=== PATIENT | female | born 1940 | race Caucasian/White ===

== ENCOUNTER 2016-07-21 20:31 | Emergency (ER) | payer OTHER ==
[2016-07-21 23:22] LABS: BASOPHILS 0.2 %; BASOPHILS ABSOLUTE 0.03 10/3/uL (0.0-0.16); EOSINOPHILS 0.7 %; EOSINOPHILS ABSOLUTE 0.09 10/3/uL (0.0-0.53); ER CBC TAT 0 Hrs 05 Mins; HEMATOCRIT 35.3 % (36.0-48.0); HEMOGLOBIN 11.7 g/dL (12.0-16.0); IMMATURE GRANULOCYTES 0.3 %; IMMATURE GRANULOCYTES ABSOLUTE 0.04 10/3/uL (0.0-0.11); LYMPHOCYTES 22.2 %; LYMPHOCYTES ABSOLUTE 2.76 10/3/uL (0.67-4.30); MANUAL DIFF NO %; MEAN CORPUS HGB CONC 33.1 g/dL (32.0-36.0); MEAN CORPUSCULAR HEMOGLOB 31.8 pg (26.0-34.0); MEAN CORPUSCULAR VOLUME 95.9 fL (80-100); MEAN PLATELET VOLUME 10.5 fL (9.2-13.0); MONOCYTES 7.1 %; MONOCYTES ABSOLUTE 0.88 10/3/uL (0.21-1.20); NEUTROPHILS 69.5 %; NEUTROPHILS ABSOLUTE 8.63 10/3/uL (2.02-8.40); PLATELET COUNT 204 10/3/uL (150-400); RBC DISTRIBUTION WIDTH 12.6 % (12.0-16.0); RED CELL COUNT 3.68 10/6/uL (4.0-5.6); WHITE BLOOD CELLS 12.4 10/3/uL (4.5-10.5)
[2016-07-21 23:30] LABS: INTERNATIONAL NORMAL RATI 1.1 UNITS (-); PARTIAL THROMBO TIME 28.2 SEC (22.5-37.2)
[2016-07-21 23:35] LABS: BUN (BLOOD UREA NITROGEN) 13 MG/DL (6-23); CALCIUM, SERUM 8.3 MG/DL (8.5-10.4); CHLORIDE, SERUM 99 MMOL/L (96-112); CO2 (CARBON DIOXIDE) 24 MMOL/L (24-34); CREATININE 0.94 MG/DL (0.55-1.02); GFR AFRICAN AMERICAN 68 ML/MIN (>=60); GFR NON AFRICAN AMERICAN 59 ML/MIN (>=60); GLUCOSE, SERUM 123 MG/DL (60-99)
[2016-07-21 23:36] LABS: POTASSIUM, SERUM 4.7 MMOL/L (3.5-5.3); SODIUM, SERUM 134 MMOL/L (135-148)
[2016-07-25] MEDS ORDERED: LISINOPRIL40 MG PO (08:33)
[2016-07-25] MEDS ORDERED: ASAB PO (08:34)
[2016-07-25] MEDS ORDERED: LOP25 PO (08:36)
[2016-07-25] MEDS ORDERED: OSPHENA60 MG PO (08:36)
[2016-07-25] MEDS ORDERED: LIPITOR20 PO (08:37)
[2016-07-25] MEDS ORDERED: FLOVENT DISK250 MCG INH (08:38)
[2016-07-25] MEDS ORDERED: MUCINEX600 MG PO (08:38)
[2016-07-25] MEDS ORDERED: VENTOLIN HFA INH (08:41)
[2016-07-25] MEDS ORDERED: DSS PO (08:41)
[2016-07-25] MEDS ORDERED: NORCO1 TA1 PO (08:41)
[2016-07-25] MEDS ORDERED: FLORASTOR250 MG PO (08:42)
== END 2016-07-22 01:27 | disposition home or self-care (01) ==
LOC: ER 20:31
PROVIDERS: Hospitalist
PROC: 2W39X1Z Immobilization of Left Upper Extremity using Splint (ICD-10-PCS; principal; 2016-07-21)
DX: S52.025A Nondisplaced fracture of olecranon process without intraarticular extension of left ulna, initial encounter for closed fracture (principal); S00.83XA Contusion of other part of head, initial encounter; J44.9 Chronic obstructive pulmonary disease, unspecified; I10 Essential (primary) hypertension; Z88.2 Allergy status to sulfonamides; Z88.5 Allergy status to narcotic agent; Z88.1 Allergy status to other antibiotic agents; W19.XXXA Unspecified fall, initial encounter
CPT/HCPCS: 70450; 80048; 85025; 85610; 85730; 96374; 99284; J2405

== ENCOUNTER 2016-07-26 10:35 | Observation (INO) | payer OTHER ==
--- NOTE | ~2016-07-26 | OP ---
Record Of Operation [facility] [address] [place]. [address] NAME: JANIE SMITH : 40 STATUS : ADM Mansoor PAT#: [id number] AGE: 76 ADM/REG DATE : 07/26/16 MR#: [id number] REPORT SERV DATE: 07/26/16 DICTATED BY: DESTINY COTO DATE: 07/26/16 REPORT STATUS : Draft TRANSCRIBED BY: MODL DATE: 07/26/16 DATE OF PROCEDURE: 07/26/2016 PREOPERATIVE DIAGNOSIS: Left elbow proximal olecranon intra-articular fracture involving approximately 60% of the articular surface - displaced from fall, 07/21/2016. POSTOPERATIVE DIAGNOSIS: Left elbow proximal olecranon intra-articular fracture involving approximately 60% of the articular surface - displaced from fall, 07/21/2016. PROCEDURE: Open reduction and internal fixation of left olecranon fracture using Acumed standard plate and screws. PHYSICIAN: Destiny Coto M.D. CREAM CHEESE MAKER: Elton Yang. ANESTHESIA: Regional block plus MAC. ESTIMATED BLOOD LOSS: 20 mL. IV FLUIDS: 800 crystalloids. COMPLICATIONS: None. DISPOSITION: The patient tolerated the procedure well and was brought to recovery room in stable condition. PROCEDURE NOTE: After regional block and pain pump catheter was administered by the Anesthesia Department in the preop holding area, the patient was brought to the operating room and placed in the supine position. After general anesthesia was administered, a pneumatic tourniquet was placed around the left proximal arm and the left upper extremity distal to the tourniquet was prepped and draped in usual sterile manner. A surgical timeout was performed and all were in agreement. An Esmarch was then used to exsanguinate the extremity and tourniquet was inflated. A 10 blade scalpel was used to make a longitudinal incision starting some 10 cm distal to the olecranon tip. The incision was made on the dorsal proximal forearm overlying the most superficial portion of the ulna and then directed proximally toward the proximal olecranon. The incision went over the fracture site and continued dorsally onto the distal arm. Dissection was brought down and this is where most of the blood was lost due to the underlying fracture hematoma. The fracture site was identified and immediately dissection was carried out laterally and medially with the latter dissection taking care to protect the ulnar nerve. The ulnar nerve was palpated deep to the cubital tunnel retinaculum and just proximal to this area the ulnar nerve was freed from the overlying the triceps tendon. Distally, a portion of the cubital tunnel retinaculum was divided and after identifying the nerve a vessel loop was used to gently wrapped around the nerve and used to guide further Record Of Operation [facility] [id number] [place]. [address] NAME: JANIE SMITH : 40 STATUS : ADM Mansoor PAT#: [id number] AGE: 76 ADM/REG DATE : 07/26/16 MR#: [id number] REPORT SERV DATE: 07/26/16 DICTATED BY: DESTINY COTO DATE: 07/26/16 REPORT STATUS : Draft TRANSCRIBED BY: MENG DATE: 07/26/16 dissection, a landmark showing where the nerve was as well as to move it out of arm's way with dissection in the area. Dissection was carried out directly at the fracture site in a curette and rongeur were used to remove the blood clots and wound was irrigated. The joint was inspected and no other abnormalities were appreciated. The fracture was reduced and the plate from the Acumed System was placed by first pre-drilling the appropriate length locking proximal screws and then more distally the larger nonlocking screw with one of the screws being locking. Placement of the screw was done after first pre-drilling with the appropriate drill bit, measuring and placing the appropriate length screw. Excellent fixation was noted in the elbow was put through range of motion and good stability was obtained. The elbow was checked under fluoroscopy and all hardware and fracture sites appeared in excellent position. The wound was irrigated and some of the periosteum on the proximal olecranon (more at the distal aspect of the incision) was able to be closed overlying the plate. The skin was then closed with deep and running Monocryl suture and Steri-Strips, sterile dressing, and a posterior splint was applied. Tourniquet was released. The patient was taken out of general anesthesia and brought to recovery room in stable condition. ALEJANDRINA/MENG Destiny Coto M.D. / [id number] CC: Kiarra Carson Paul Daniel
--- NOTE | ~2016-07-26 | CN ---
Consultation Report [facility] [address] [place]. [address] NAME: JANIE SMITH : 40 STATUS : ADM Mansoor PAT#: [id number] AGE: 76 ADM/REG DATE : 07/26/16 MR#: [id number] REPORT SERV DATE: 07/27/16 DICTATED BY: NEREIDAADELEGABRIEL PACKER DATE: 07/27/16 REPORT STATUS : Draft TRANSCRIBED BY: MODL DATE: 07/27/16 CONSULTATION REPORT DATE OF CONSULTATION: 07/27/2016 REASON FOR CONSULTATION: Consulted for atrial fib with RVR. REQUESTING PHYSICIAN: Lalo Love M.D. IDENTIFYING DATA: 1. PCP, Pineda Bone. 2. Motor Patrol Operator, Jeevan Ruiz. 3. Leaflet Distributor, Lalo Travis. 4. Orthopedist in the past, Diego Ceballos, now seen by Lalo Love. HISTORY OF PRESENT ILLNESS: This is a pleasant 76-year-old female with severe COPD, who wears O2 at 3 L per nasal cannula every night. She is admitted by Dr. Lalo Love for a left elbow fracture. She was in her usual state of health to where she was walking up a ramp to her front door and lost her footing and fell hitting her left elbow. Immediately, it caused pain and swelling. She was seen in a walk-in clinic and then presented to [facility] where x-rays showed a displaced olecranon fracture. She is now status post ORIF of the left elbow on 07/26/[address] Lalo Love. The hospitalist group has been consulted to help manage postop atrial fib with RVR. The patient has a history of hypertension, high cholesterol, dysrhythmias, and palpitations as well as some severe COPD and emphysema and chronic O2 use at bedtime. The patient's history was obtained through careful interview with the patient, coupled with review of [employer], software consultant's notes, and old medical records. PAST MEDICAL HISTORY: 1. Mild memory loss. 2. Cataracts. 3. Dentures. 4. Hypertension. 5. High cholesterol. 6. Dysrhythmias. 7. Palpitations. 8. COPD. 9. Emphysema requiring O2 at 3 L per nasal cannula at bedtime for sleep. 10.Pneumonia. 11.Left elbow injury. 12.Polyps. 13.Osteoporosis. 14.Arthritis. Consultation Report [facility] [address] [place]. [address] NAME: JANIE SMITH : 40 STATUS : ADM Mansoor PAT#: [id number] AGE: 76 ADM/REG DATE : 07/26/16 MR#: [id number] REPORT SERV DATE: 07/27/16 DICTATED BY: ADELE PADRON DATE: 07/27/16 REPORT STATUS : Draft TRANSCRIBED BY: MENG DATE: 07/27/16 15.Peripheral vascular disease. HOME MEDICATIONS: 1. Albuterol HFA two puffs inhalation every six hours p.r.n. for shortness of breath. 2. Aspirin 81 mg p.o. daily. 3. Lipitor 20 mg p.o. at bedtime. 4. Colace 100 mg p.o. twice a day p.r.n. constipation. 5. Flovent Diskus 250 mcg one puff inhalation twice a day. 6. Mucinex 600 mg p.o. every 12 hours. 7. Independence 5/325 mg one tablet p.o. every six hours p.r.n. pain. 8. Lisinopril 80 mg p.o. daily. 9. Toprol-XL 25 mg p.o. twice a day. 10.Osphena 60 mg p.o. with breakfast. 11.Florastor 250 mg p.o. daily p.r.n. ALLERGIES: 1. CODEINE. 2. AUGMENTIN. 3. SULFA. 4. AMOXICILLIN. SOCIAL HISTORY: The patient is a and lives in a one level home. Lives with her son. Previous smoker of 47-year history, quit in 2009. Has three children, two of which are living. No alcohol or illicit drug use. FAMILY HISTORY: Mother had hypertension. Breast cancer and lymph node cancer. Father was diabetic, had colon cancer. One sister is diabetic, has fibromyalgia, hypertension and had an ID. One brother had hypertension, diabetes, and had an ID. She has three brothers, one sister, and two half sisters. PAST SURGICAL HISTORY: 1. Intraocular lens implant. 2. Cath with vascular stent in 2001. 3. Heart cath in 2004. 4. Lumbar surgery in [address] Diego Ceballos. 5. Trigger finger release. 6. Hysterectomy, 1980. 7. Colonoscopy, 2015. REVIEW OF SYSTEMS: Negative other than what is in HPI. The patient complains of no shortness of breath. No chest pain. No nausea and vomiting. No fever. No abdominal pain. No palpitations. Displays no agitation. PHYSICAL EXAMINATION: Consultation Report [facility] [address] [place]. [address] NAME: JANIE SMITH : 40 STATUS : ADM Mansoor PAT#: [id number] AGE: 76 ADM/REG DATE : 07/26/16 MR#: [id number] REPORT SERV DATE: 07/27/16 DICTATED BY: ADELE PADRON DATE: 07/27/16 REPORT STATUS : Draft TRANSCRIBED BY: MODBandar DATE: 07/27/16 VITAL SIGNS: Vital signs from today; blood pressure 106/72, heart rate 87, respiratory rate 16, O2 sat 97% on 3 L nasal cannula. GENERAL: This is a very pleasant 76-year-old female, resting in bed in no acute distress. HEAD: Her head is atraumatic, normocephalic. NEUROLOGIC: She is alert and oriented x3. Her mood is pleasant and appropriate. NECK: Supple. Trachea is midline. No JVD noted. No obvious thyromegaly or lymphadenopathy. EENT: Her sclerae are nonicteric. Pupils are equal, reactive to light. Her nares are patent. Mucous membranes moist. Tongue midline without deviation. Soft palate rises equally on phonation. CHEST: No pain with palpation. LUNGS: Clear to auscultation bilaterally. She has normal respiratory effort. No increased work of breathing with conversation. She does state at home she has shortness of breath with activity. CARDIOVASCULAR: S1, S2. On telemetry at present time, she has an irregular rhythm, noted is atrial fib. Her rate is now 92 on EKG on 07/27/2016, that was obtained. Her EKG displayed atrial fib with RVR with her rate in the 120s. ABDOMEN: Soft, nontender, with active bowel sounds. No palpable organomegaly. EXTREMITIES: No edema. Normal distal pulses. No calf tenderness. SURGICAL WOUND SITE: Her dressing is clean, dry, and intact to her left arm. She has a left arm sling in place. SKIN: Warm and dry. No unusual rashes or lesions. Normal color and turgor for age. PSYCHIATRIC: She is pleasant, cooperative, talkative. Appropriate mood and affect. LABORATORY DATA: Sodium 136, potassium 4.3, chloride 100, BUN 16, creatinine 1.06, GFR 59, glucose 105, calcium 8.8. Hemoglobin 11.8, hematocrit 35.1. ASSESSMENT AND PLAN: 1. Atrial fibrillation with rapid ventricular response. Aware. The patient has a history of dysrhythmias and palpitations. She is on metoprolol-XL b.i.d. We will continue her home meds. She is given a dose at present time that she missed last night. We will obtain troponins every six hours x3. She had an EKG that displayed atrial fib with RVR with a rate in the 120s. She will be on telemetry, which she is transferred to a telemetry floor with continuous O2 sat monitoring. We will place her on a cardiac diet for this morning. 2. Hypertension. Aware. Her home medications will be continued, which include metoprolol. 3. Chronic obstructive pulmonary disease. Aware. The patient does have a history of emphysema and COPD. She is chronically on O2 at 3 L at night for sleeping. We will monitor her O2 sat continuously. She will be placed on O2 at night for sleep and we can titrate her O2 to keep her sat 92% or greater. 4. Hypercholesterolemia. Aware. She will have her daily Lipitor continued. A.m. labs will be obtained, BMP, magnesium, CBC, TSH, troponin every six hours x3. The hospitalist group would like to thank you for this consultation and please let us know Consultation Report [address] [place]. [address] NAME: JANIE SMITH : 40 STATUS : ADM Mansoor PAT#: [id number] AGE: 76 ADM/REG DATE : 07/26/16 MR#: [id number] REPORT SERV DATE: 07/27/16 DICTATED BY: ADELE PADRON DATE: 07/27/16 REPORT STATUS : Draft TRANSCRIBED BY: MENG DATE: 07/27/16 if we could be of any further assistance. We will continue to monitor her rhythm. At present, it is controlled as an atrial fib with rate in the 80s. We will continue her p.o. metoprolol and continue to assess if medications are needed other than what are scheduled. /EMNG Adele Padron NP / [id number] CC: Kiarra Carson
--- NOTE | ~2016-07-26 | HP ---
History And Physical [facility] [address] [place]. [address] NAME: MARI SMITH : 40 STATUS : REG [facility]#: [id number] AGE: 76 ADM/REG DATE : 07/26/16 MR#: [id number] REPORT SERV DATE: 07/26/16 DICTATED BY: DESTINY COTO DATE: 07/26/16 REPORT STATUS : Draft TRANSCRIBED BY: MODBandar DATE: 07/26/16 DATE OF ADMISSION: 07/26/2016 REASON: Left elbow fracture from fall at home, 07/21/2016, causing olecranon displaced fracture. HISTORY OF PRESENT ILLNESS: Mari Smith is a 76-year-old right-hand dominant female with severe COPD, requiring 3 L of O2 nasal cannula while sleeping. She was in her usual state of health until 07/21/2016, at which time, she was walking up the ramp to her front door, when she lost her footing and fell, hitting her left elbow. This caused immediate pain and swelling and she was seen at the walk-in clinic and then to [facility], where x-rays were taken showing a displaced olecranon fracture. She was placed in a long-arm splint and she was seen in my office, 07/22/2016. The fracture was amendable to the fracture fixation and we discussed the risks and benefits of surgery. She wished to proceed with surgery, and she is here today to execute such plan. No previous injuries to the left elbow. PAST MEDICAL HISTORY: 1. COPD. 2. Anxiety. 3. Osteoarthritis. 4. Hypertension. 5. Emphysema. 6. Asthma. PAST SURGICAL HISTORY: 1. Abdominal vascular stent. 2. Hysterectomy. 3. Cataract surgery. 4. Trigger finger release. 5. Lumbar spine discectomy. SOCIAL HISTORY: She is , but she lives with her son, Myles Oreilly. She is retired and she has a 47-year history of tobacco use, but negative EtOH. PHYSICAL EXAMINATION: GENERAL: Pleasant, cooperative 76-year-old female with arm in sling, in no acute distress. VITAL SIGNS: Height 5 feet 1 inch, weight 133 pounds, BMI 21.1, blood pressure 137/64. HEENT: Normocephalic, atraumatic. Wears dentures. Pharynx not injected. COR: Regular rate and rhythm. LUNGS: Slightly distant breath sounds, but no rhonchi. ABDOMEN: Soft, nontender. MUSCULOSKELETAL: C-spine nontender. Right shoulder, elbow, wrist, and all fingers with functional range of motion. The left upper extremity is held close to the body and it is in a long-arm splint, holding the elbow in approximately 90 degrees of immobilization. The left hand is neurovascularly intact. TLS spine is nontender. Both hips, knees, and ankles with no pain with palpation. She was able to ambulate without any difficulties. History And Physical [address] [place]. [address] NAME: MARI SMITH : 40 STATUS : REG [facility]#: [id number] AGE: 76 ADM/REG DATE : 07/26/16 MR#: [id number] REPORT SERV DATE: 07/26/16 DICTATED BY: DESTINY COTO DATE: 07/26/16 REPORT STATUS : Draft TRANSCRIBED BY: MENG DATE: 07/26/16 DIAGNOSTIC DATA: X-rays, multiple views of the left elbow taken at [facility], 07/21/2016, shows an olecranon fracture involving slightly more than 50% with displacement proximally. IMPRESSION: 1. Left elbow olecranon fracture involving 50%-60% of the articular surface with displacement from fall, 07/21/2016. 2. Chronic obstructive pulmonary disease secondary to asthma, emphysema, and extensive tobacco use. PLAN: Open reduction and internal fixation. The risks and benefits of such surgery were discussed with Mari and her son, Myles Oreilly, at the time of their initial visit, 07/22/2016. All questions were answered by me to their satisfaction. They wished to proceed with surgery and we will plan accordingly. ALEJANDRINA/MENG Destiny Coto M.D. / [id number] CC: Kiarra Carson
[~2016-07-26 10:35] MED LIST: ASAB PO; DSS PO; FLORASTOR250 MG PO; FLOVENT DISK250 MCG INH; LIPITOR20 PO; LISINOPRIL40 MG PO; LOP25 PO; MUCINEX600 MG PO; NORCO1 TA1 PO; OSPHENA60 MG PO; VENTOLIN HFA INH
[2016-07-26 11:29] LABS: HEMATOCRIT 35.1 % (36.0-48.0); HEMOGLOBIN 11.8 g/dL (12.0-16.0)
[2016-07-26 11:40] LABS: BUN (BLOOD UREA NITROGEN) 16 MG/DL (6-23); CALCIUM, SERUM 8.8 MG/DL (8.5-10.4); CHLORIDE, SERUM 100 MMOL/L (96-112); CO2 (CARBON DIOXIDE) 26 MMOL/L (24-34); CREATININE 1.06 MG/DL (0.55-1.02); GFR AFRICAN AMERICAN 59 ML/MIN (>=60); GFR NON AFRICAN AMERICAN 51 ML/MIN (>=60); GLUCOSE, SERUM 105 MG/DL (60-99); POTASSIUM, SERUM 4.3 MMOL/L (3.5-5.3); SODIUM, SERUM 136 MMOL/L (135-148)
[2016-07-27 07:51] LABS: BASOPHILS 0.2 %; BASOPHILS ABSOLUTE 0.02 10/3/uL (0.0-0.16); EOSINOPHILS 0.6 %; EOSINOPHILS ABSOLUTE 0.06 10/3/uL (0.0-0.53); HEMATOCRIT 33.7 % (36.0-48.0); HEMOGLOBIN 11.5 g/dL (12.0-16.0); IMMATURE GRANULOCYTES 0.3 %; IMMATURE GRANULOCYTES ABSOLUTE 0.03 10/3/uL (0.0-0.11); LYMPHOCYTES 18.7 %; LYMPHOCYTES ABSOLUTE 1.73 10/3/uL (0.67-4.30); MEAN CORPUS HGB CONC 34.1 g/dL (32.0-36.0); MEAN CORPUSCULAR HEMOGLOB 33.4 pg (26.0-34.0); MEAN PLATELET VOLUME 9.4 fL (9.2-13.0); MONOCYTES 12.8 %; MONOCYTES ABSOLUTE 1.18 10/3/uL (0.21-1.20); NEUTROPHILS 67.4 %; NEUTROPHILS ABSOLUTE 6.23 10/3/uL (2.02-8.40); PLATELET COUNT 191 10/3/uL (150-400); RBC DISTRIBUTION WIDTH 12.2 % (12.0-16.0); RED CELL COUNT 3.44 10/6/uL (4.0-5.6); WHITE BLOOD CELLS 9.3 10/3/uL (4.5-10.5)
[2016-07-27 07:52] LABS: MANUAL DIFF NO %
[2016-07-27 08:13] LABS: BUN (BLOOD UREA NITROGEN) 9 MG/DL (6-23); CALCIUM, SERUM 8.2 MG/DL (8.5-10.4); CHLORIDE, SERUM 96 MMOL/L (96-112); CO2 (CARBON DIOXIDE) 26 MMOL/L (24-34); CREATININE 0.82 MG/DL (0.55-1.02); GFR AFRICAN AMERICAN 81 ML/MIN (>=60); GFR NON AFRICAN AMERICAN 70 ML/MIN (>=60); GLUCOSE, SERUM 143 MG/DL (60-99); POTASSIUM, SERUM 3.8 MMOL/L (3.5-5.3); SODIUM, SERUM 132 MMOL/L (135-148); TROPONIN I <0.02 NG/ML (<0.05); ULTRASENSITIVE TSH 0.662 MCIU/ML (0.358-3.740)
[2016-07-28 06:59] LABS: BASOPHILS 0.3 %; BASOPHILS ABSOLUTE 0.02 10/3/uL (0.0-0.16); EOSINOPHILS 4.1 %; EOSINOPHILS ABSOLUTE 0.29 10/3/uL (0.0-0.53); HEMATOCRIT 35.3 % (36.0-48.0); HEMOGLOBIN 12.1 g/dL (12.0-16.0); IMMATURE GRANULOCYTES 0.3 %; IMMATURE GRANULOCYTES ABSOLUTE 0.02 10/3/uL (0.0-0.11); LYMPHOCYTES 21.8 %; LYMPHOCYTES ABSOLUTE 1.55 10/3/uL (0.67-4.30); MEAN CORPUS HGB CONC 34.3 g/dL (32.0-36.0); MEAN CORPUSCULAR HEMOGLOB 33.4 pg (26.0-34.0); MEAN CORPUSCULAR VOLUME 97.5 fL (80-100); MEAN PLATELET VOLUME 9.8 fL (9.2-13.0); MONOCYTES 12.8 %; MONOCYTES ABSOLUTE 0.91 10/3/uL (0.21-1.20); NEUTROPHILS 60.7 %; NEUTROPHILS ABSOLUTE 4.33 10/3/uL (2.02-8.40); PLATELET COUNT 217 10/3/uL (150-400); RBC DISTRIBUTION WIDTH 12.1 % (12.0-16.0); RED CELL COUNT 3.62 10/6/uL (4.0-5.6); WHITE BLOOD CELLS 7.1 10/3/uL (4.5-10.5)
[2016-07-28 07:00] LABS: MANUAL DIFF NO %
[2016-07-28 07:12] LABS: BUN (BLOOD UREA NITROGEN) 10 MG/DL (6-23); CALCIUM, SERUM 8.5 MG/DL (8.5-10.4); CHLORIDE, SERUM 98 MMOL/L (96-112); CO2 (CARBON DIOXIDE) 27 MMOL/L (24-34); CREATININE 0.71 MG/DL (0.55-1.02); GFR AFRICAN AMERICAN 96 ML/MIN (>=60); GFR NON AFRICAN AMERICAN 83 ML/MIN (>=60); GLUCOSE, SERUM 110 MG/DL (60-99); POTASSIUM, SERUM 4.2 MMOL/L (3.5-5.3); SODIUM, SERUM 134 MMOL/L (135-148)
[2016-07-28] MEDS ORDERED: OXYCOD PO (16:20)
== END 2016-07-28 19:03 | disposition home or self-care (01) ==
LOC: SDC 10:35 → 3SO 20:46 → 1SO 07-27 02:34
PROVIDERS: Nurse Practitioner; Nurse Practitioner Family; Orthopaedic Surgery Hand Surgery
PROC: 0PSL04Z Reposition Left Ulna with Internal Fixation Device, Open Approach (ICD-10-PCS; principal; 2016-07-26 13:00)
DX: S52.032A Displaced fracture of olecranon process with intraarticular extension of left ulna, initial encounter for closed fracture (principal); I10 Essential (primary) hypertension; E78.00 Pure hypercholesterolemia, unspecified; J45.909 Unspecified asthma, uncomplicated; J43.9 Emphysema, unspecified; M19.90 Unspecified osteoarthritis, unspecified site; I73.9 Peripheral vascular disease, unspecified; M81.0 Age-related osteoporosis without current pathological fracture; Z88.5 Allergy status to narcotic agent; Z88.8 Allergy status to other drugs, medicaments and biological substances; Z79.82 Long term (current) use of aspirin; Z79.2 Long term (current) use of antibiotics; Z79.891 Long term (current) use of opiate analgesic; Z79.899 Other long term (current) drug therapy; Z87.891 Personal history of nicotine dependence; Z90.710 Acquired absence of both cervix and uterus; Z98.890 Other specified postprocedural states; Z86.010 Personal history of colon polyps; Z88.2 Allergy status to sulfonamides
CPT/HCPCS: 71010; 74230; 80048; 83735; 84443; 84484; 85014; 85018; 85025; 92611-GN; 93005; 94640; 96374; 96376; 97161-GP; 97166-GO; A9270-GY; C1713; G0378; J0690; J1170; J2250; J2405; J2795; J3010

== ENCOUNTER 2016-07-30 18:03 | Emergency (ER) | payer OTHER ==
[~2016-07-30 18:03] MED LIST changes: +OXYCOD PO
== END 2016-07-30 23:29 | disposition home or self-care (01) ==
LOC: ER 18:03
DX: R20.9 Unspecified disturbances of skin sensation (principal); J45.909 Unspecified asthma, uncomplicated; J44.9 Chronic obstructive pulmonary disease, unspecified; I10 Essential (primary) hypertension; F41.9 Anxiety disorder, unspecified; Z88.2 Allergy status to sulfonamides; Z88.5 Allergy status to narcotic agent; Z88.1 Allergy status to other antibiotic agents; Z88.8 Allergy status to other drugs, medicaments and biological substances; Z79.82 Long term (current) use of aspirin; Z79.899 Other long term (current) drug therapy
CPT/HCPCS: 99284; A9270-GY